=== PATIENT | female | born 1945 | race Caucasian/White ===

== ENCOUNTER 2017-03-27 00:31 | Emergency (ER) | payer MEDICARE, OTHER ==
--- NOTE | 2017-03-27 01:07 | EDM.PDOC ---
[id number] 4d WEAK Time Seen by Provider: 03/27/17 00:45 Source of Information: Reports: Patient History Limitations: Reports: No Limitations - History of Present Illness INITIAL COMMENTS - FREE TEXT/NARRATIVE: C/O not feeling well today. Last week one day with loose stools then better, Today, Intermittent headache, feels weak and tired and tonight ache in left shoulder radiating down arm. Headache similar to previous. Shoulder pain previous to pain when lying on shoulder but has not been doing this today No fever or chills. Lightheaded when standing . No chest pain or SOB. Minimal health car none in recent 5 years. Remote EKG with GB surgery and was told showed "something but can't recall what it was. Onset: Today Location: Reports: Upper Extremity, Left Left Upper Arm Pain Score (Numeric/FACES): 2 - Related Data Allergies Allergy/AdvReac Type Severity Reaction Status Date / Time No Known Allergies Allergy Verified 03/27/17 00:45 Home Meds: Home Meds . [No Known Home Meds] 03/27/17 [History] Past Medical History - Past Surgical History GI Surgical History: Reports: Cholecystectomy Social & Family History - Tobacco Use Smoking Status *Q: Never Smoker Second Hand Smoke Exposure: No - Caffeine Use Caffeine Use: Reports: Tea - Recreational Drug Use Recreational Drug Use: No ED ROS GENERAL - Review of Systems Review Of Systems: See Below Constitutional: Reports: Weakness. Denies: Fever, Chills, Diaphoresis, Decreased Appetite HEENT: Reports: No Symptoms Respiratory: Reports: No Symptoms Cardiovascular: Reports: Lightheadedness Endocrine: Reports: No Symptoms GI/Abdominal: Reports: No Symptoms Musculoskeletal: Reports: Shoulder Pain Skin: Reports: No Symptoms Neurological: Reports: No Symptoms Psychiatric: Reports: No Symptoms ED EXAM, GENERAL - Physical Exam Exam: See Below Exam Limited By: No Limitations General Appearance: Alert, Mild Distress Eye Exam: Bilateral Eye: EOMI, PERRL Ears: Normal External Exam, Normal TMs Nose: Normal Inspection Throat/Mouth: Normal Inspection, Normal Lips Head: Atraumatic, Normocephalic Neck: Normal Inspection, Full Range of Motion. No: Lymphadenopathy (L), Lymphadenopathy (R) Respiratory/Chest: No Respiratory Distress, Lungs Clear, Normal Breath Sounds Cardiovascular: Normal Peripheral Pulses, Regular Rate, Rhythm, No Edema, No JVD , No Murmur GI/Abdominal: Normal Bowel Sounds, Soft, Non-Tender Back Exam: Normal Inspection, Full Range of Motion Extremities: Normal Inspection, Normal Range of Motion, Non-Tender, No Pedal Edema Neurological: Alert, Oriented, Normal Gait, No Motor/Sensory Deficits Psychiatric: Normal Affect Skin Exam: Warm, Dry, Intact, Normal Color, No Rash EKG INTERPRETATION Rhythm: Other (Sinus Bradycardia) Rate (Beats/Min): 56 QRS: Other (LAFB) Course - Vital Signs Last Recorded V/S: Last Vital Signs Temp 98.6 F 03/27/17 04:10 Pulse 52 L 03/27/17 04:10 Resp 14 03/27/17 04:10 BP 139/61 03/27/17 04:10 Pulse Ox 98 03/27/17 04:10 Orthostatic Blood Pressure [ 113/62 Standing] Orthostatic Blood Pressure [ 151/69 Sitting] Orthostatic Blood Pressure [ 146/64 Supine] - Orders/Labs/Meds Orders: Active Orders 24 hr Category Date Time Status EKG 12 Lead [EKG Documentation Completion] [RC] URGENT Care 03/27/17 00:50 Active EKG Documentation Completion [RC] URGENT Care 03/27/17 05:00 Active Orthostatic Vital Signs [RC] ASDIRECTED Care 03/27/17 01:02 Active CULTURE URINE [RM] Stat Lab 03/27/17 01:00 Received Labs: Laboratory Tests 03/27/17 03/27/17 03/27/17 Range/Units 00:55 00:55 00:55 WBC 6.0 (5.0-10.0) 10^3/uL RBC 4.45 (4.2-5.4) 10^6/uL Hgb 13.3 (12.0-16.0) g/dL Hct 40.3 (37.0-47.0) % MCV 90.6 (80-100) fL MCH 29.9 (27.0-34.0) pg MCHC 33.0 (33.0-35.0) g/dL Plt Count 191 (150-450) 10^3/uL Neut % (Auto) 54.6 (42.2-75.2) % Lymph % (Auto) 31.0 (20.5-50.1) % [place] % (Auto) 10.8 H (2-8) % Eos % (Auto) 3.3 H (1.0-3.0) % Baso % (Auto) 0.3 (0.0-1.0) % Sodium 141 (135-145) mmol/L Potassium 4.4 (3.6-5.0) mmol/L Chloride 103 (101-111) mmol/L Carbon Dioxide 27.0 (21.0-31.0) mmol/L Anion Gap 15.4 BUN 18 (7-18) mg/dL Creatinine 0.7 (0.6-1.3) mg/dL Est Cr Clr Drug Dosing 63.65 mL/min Estimated GFR (MDRD) > 60 BUN/Creatinine Ratio 25.71 Glucose 101 (74-105) mg/dL Calcium 9.1 (8.4-10.2) mg/dl Total Bilirubin 0.6 (0.2-1.0) mg/dL AST 17 (10-42) IU/L ALT 13 (10-60) IU/L Alkaline Phosphatase 61 (42-121) IU/L CK-MB (CK-2) 2.00 (0.4-4.7) ng/mL Troponin I < 0.02 (0.00-0.02) ng/ml Total Protein 6.8 (6.7-8.2) g/dl Albumin 3.9 (3.2-5.5) g/dl Globulin 2.9 Albumin/Globulin Ratio 1.34 Amylase 101 H (28-100) U/L Lipase 45 (22-51) U/L Urine Color (YELLOW) Urine Appearance (CLEAR) Urine pH (5.0-9.0) Ur Specific [place] (1.005-1.030) Urine Protein (NEGATIVE) Urine Glucose (UA) (NEGATIVE) Urine Ketones (NEGATIVE) Urine Occult Blood (NEGATIVE) Urine Nitrite (NEGATIVE) Urine Bilirubin (NEGATIVE) Urine Urobilinogen (0.2-1.0) mg/dL Ur Leukocyte Esterase (NEGATIVE) Urine RBC /HPF Urine WBC (0-5/HPF) /HPF Ur Epithelial Cells /HPF Urine Bacteria (0-FEW/HPF) /HPF 03/27/17 03/27/17 Range/Units 01:00 05:08 WBC (5.0-10.0) 10^3/uL RBC (4.2-5.4) 10^6/uL Hgb (12.0-16.0) g/dL Hct (37.0-47.0) % MCV (80-100) fL MCH (27.0-34.0) pg MCHC (33.0-35.0) g/dL Plt Count (150-450) 10^3/uL Neut % (Auto) (42.2-75.2) % Lymph % (Auto) (20.5-50.1) % [place] % (Auto) (2-8) % Eos % (Auto) (1.0-3.0) % Baso % (Auto) (0.0-1.0) % Sodium (135-145) mmol/L Potassium (3.6-5.0) mmol/L Chloride (101-111) mmol/L Carbon Dioxide (21.0-31.0) mmol/L Anion Gap BUN (7-18) mg/dL Creatinine (0.6-1.3) mg/dL Est Cr Clr Drug Dosing mL/min Estimated GFR (MDRD) BUN/Creatinine Ratio Glucose (74-105) mg/dL Calcium (8.4-10.2) mg/dl Total Bilirubin (0.2-1.0) mg/dL AST (10-42) IU/L ALT (10-60) IU/L Alkaline Phosphatase (42-121) IU/L CK-MB (CK-2) (0.4-4.7) ng/mL Troponin I < 0.02 (0.00-0.02) ng/ml Total Protein (6.7-8.2) g/dl Albumin (3.2-5.5) g/dl Globulin Albumin/Globulin Ratio Amylase (28-100) U/L Lipase (22-51) U/L Urine Color Yellow (YELLOW) Urine Appearance Slightly cloudy (CLEAR) Urine pH 7.5 (5.0-9.0) Ur Specific [place] 1.015 (1.005-1.030) Urine Protein Negative (NEGATIVE) Urine Glucose (UA) Negative (NEGATIVE) Urine Ketones Negative (NEGATIVE) Urine Occult Blood Small H (NEGATIVE) Urine Nitrite Negative (NEGATIVE) Urine Bilirubin Negative (NEGATIVE) Urine Urobilinogen 0.2 (0.2-1.0) mg/dL Ur Leukocyte Esterase Moderate H (NEGATIVE) Urine RBC 5-10 H /HPF Urine WBC 10-20 H (0-5/HPF) /HPF Ur Epithelial Cells Moderate H /HPF Urine Bacteria Moderate H (0-FEW/HPF) /HPF Meds: Medications Discontinued Medications Generic Name Dose Route Start Last Admin Trade Name Jose PRN Reason Stop Dose Admin Aspirin 324 mg 03/27/17 01:26 03/27/17 01:31 Aspirin PO 03/27/17 01:27 324 mg ONETIME ONE Administration Nitrofurantoin Macrocrystals 100 mg 03/27/17 01:47 03/27/17 01:54 Macrobid PO 03/27/17 01:48 100 mg ONETIME ONE Administration Nitroglycerin 0.4 mg 03/27/17 01:27 03/27/17 01:31 Nitrostat SL 03/27/17 01:28 0.4 mg ONETIME ONE Administration Departure - Departure Time of Disposition: 05:53 Disposition: Home, Self-Care 01 Condition: Fair Clinical Impression: UTI, Urinary tract infectious disease, Left anterior shoulder pain - Discharge Information Instructions: Urinary Tract Infection, Adult Forms: ED Department Discharge Additional Instructions: Establish primary care follow up one week, sooner if chest pain, sweating or difficulty breathing or fever. Macrobid 100mg one twice daily for one week - My Orders Last 24 Hours: My Active Orders 03/27/17 00:50 EKG 12 Lead [EKG Documentation Completion] [RC] URGENT 03/27/17 01:00 CULTURE URINE [RM] Stat 03/27/17 01:02 Orthostatic Vital Signs [RC] ASDIRECTED 03/27/17 05:00 EKG Documentation Completion [RC] URGENT - Assessment/Plan Last 24 Hours: My Active Orders 03/27/17 00:50 EKG 12 Lead [EKG Documentation Completion] [RC] URGENT 03/27/17 01:00 CULTURE URINE [RM] Stat 03/27/17 01:02 Orthostatic Vital Signs [RC] ASDIRECTED 03/27/17 05:00 EKG Documentation Completion [RC] URGENT
[2017-03-27 01:21] LABS: CHLORIDE,CL 103 mmol/L (101-111); SODIUM,NA 141 mmol/L (135-145)
[2017-03-27] MEDS ORDERED: Aspirin 81 MG Tab.Chew PO ONE (01:26)
[2017-03-27] MEDS ORDERED: Nitroglycerin 0.4 MG Tab.SL SL ONE (01:27)
[2017-03-27] MEDS ORDERED: Nitrofurantoin Monohydrate/Macrocrystalline 100 MG Cap PO ONE (01:47)
[2017-03-27 06:24] VITALS: BP 140/67
--- NOTE | 2017-03-27 18:29 | EKG ---
03/27/2017 - KRISS MIGUEL - EKG from 52 minutes after midnight 03/27/2017. EKG, per my reading, shows right bundle-branch block with no acute ST changes. [facility] /[id number]
--- NOTE | 2017-03-27 18:38 | EKG ---
03/27/2017 - KRISS MIGUEL - TIME: 0449 hours. EKG per my reading, shows right bundle-branch block. [facility] /[id number]
== END 2017-03-27 06:25 | disposition home or self-care (01) ==
LOC: DL.ED 00:31
DX: M25.512 Pain in left shoulder (principal); N39.0 Urinary tract infection, site not specified; Z90.49 Acquired absence of other specified parts of digestive tract
CPT/HCPCS: 36415; 80053; 81001; 82150; 82553; 83690; 84484; 85025; 87086; 93005; 93010; 99285; A9270; 99283

== ENCOUNTER 2021-05-28 02:46 | Emergency (ER) | payer MEDICARE, OTHER ==
[2021-05-28] MEDS ORDERED: Sodium Chloride 0.9% 10 ML Syringe FLUSH PRN (03:10)
[2021-05-28] MEDS ORDERED: Baclofen 10 MG Tab PO ONE (03:11)
--- NOTE | 2021-05-28 03:19 | EDM.PDOC ---
ED HPI GENERAL MEDICAL PROBLEM - General Chief Complaint: Back Pain or Injury Stated Complaint: STABBING PAIN LEFT SIDE OF BACK Time Seen by Provider: 05/28/21 03:07 Source of Information: Reports: Patient History Limitations: Reports: No Limitations - History of Present Illness INITIAL COMMENTS - FREE TEXT/NARRATIVE: Pt is here for back pain that started about 30 minutes prior to arrival that woke her up from sleep. She denies any recent illnesses. No shortness of breath or cough. It hurts with deep breaths and movements. Rest makes it better. No fevers or chills. No known sick contacts or exposure to COVID. She has never had this before. She is not sure if she slept wrong. No nausea or vomiting. Otherwise feeling well. The pain does not radiate. She noted that rest it will get down to a 3-4/10, but will get up to a 10/10 with movement or breathing. It is sharp in nature. No chest pain or tightness. No urinary urgency, dysuria or frequency. - Related Data Allergies Allergy/AdvReac Type Severity Reaction Status Date / Time No Known Allergies Allergy Verified 03/27/17 00:45 Home Meds: Home Meds . [No Known Home Meds] 03/27/17 [History] Past Medical History - Past Surgical History GI Surgical History: Reports: Cholecystectomy Social & Family History - Caffeine Use Caffeine Use: Reports: Tea ED ROS GENERAL - Review of Systems Review Of Systems: Comprehensive ROS is negative, except as noted in HPI. ED EXAM, UPPER BACK/NECK PAIN - Physical Exam Exam: See Below Exam Limited By: No Limitations General Appearance: Alert, WD/WN, Mild Distress (from acute pain) Eye Exam: Bilateral Eye: Normal Inspection Ears Exam: Normal External Exam Throat/Mouth Exam: Normal Voice, No Airway Compromise Head Exam: Atraumatic, Normocephalic Neck Exam: Non-Tender, Full Range of Motion, Normal Inspection Cardiovascular/Respiratory: Regular Rate, Rhythm, No M/R/G, Normal Breath Sounds, No Respiratory Distress GI/Abdominal: Soft, Non-Tender, No Distention (Female) Exam: Deferred Rectal (Female) Exam: Deferred Back Exam: Normal Inspection, Muscle Spasm (left mid thoracic/parascapular), Paraspinal Tenderness (over muscle spasm) Extremities: Normal Inspection, No Pedal Edema, Normal Capillary Refill Neurologic: No Motor/Sensory Deficits, Alert, Normal Mood/Affect, Oriented x 3 Psychiatric: Normal Affect, Normal Mood Skin Exam: Normal Color, Warm/Dry Lymphatic: No Adenopathy #1 Interpretation EKG Date: 05/28/21 Time: 03:02 Rhythm: NSR [place]: LAD-Left [place] Deviation P-Wave: Present QRS: Normal ST-T: Normal QT: Normal Course - Vital Signs Last Recorded V/S: Last Vital Signs Temp 98.2 F 05/28/21 03:26 Pulse 60 05/28/21 03:26 Resp 20 05/28/21 03:26 BP 160/89 H 05/28/21 03:26 Pulse Ox 96 05/28/21 03:26 - Orders/Labs/Meds Orders: Active Orders 24 hr Category Date Time Status Peripheral IV Care [RC] . DIRECTED Care 05/28/21 03:11 Ordered Sodium Chloride 0.9% [Saline Flush] Med 05/28/21 03:10 Active 10 ml FLUSH ASDIRECTED PRN Peripheral IV Insertion Adult [OM.PC] Stat Oth 05/28/21 03:10 Ordered Medication Orders Sodium Chloride (Sodium Chloride 0.9% 10 Ml Syringe) 10 ml FLUSH ASDIRECTED PRN PRN Reason: Keep Vein Open Labs: Laboratory Tests 05/28/21 05/28/21 05/28/21 Range/Units 03:03 03:03 03:37 WBC 6.6 (5.0-10.0) 10^3/uL RBC 4.25 (4.2-5.4) 10^6/uL Hgb 12.5 (12.0-16.0) g/dL Hct 37.9 (37.0-47.0) % MCV 89.2 (80-100) fL MCH 29.4 (27.0-34.0) pg MCHC 33.0 (33.0-35.0) g/dL Plt Count 193 (150-450) 10^3/uL Neut % (Auto) 50.3 (42.2-75.2) % Lymph % (Auto) 35.7 (20.5-50.1) % [place] % (Auto) 8.9 H (2-8) % Eos % (Auto) 4.5 H (1.0-3.0) % Baso % (Auto) 0.6 (0.0-1.0) % Sodium 143 (136-145) mmol/L Potassium 4.0 (3.5-5.1) mmol/L Chloride 106 (98-107) mmol/L Carbon Dioxide 26 (21-32) mmol/L Anion Gap 15.0 H (7-13) mEq/L BUN 15 (7-18) mg/dL Creatinine 0.78 (0.55-1.02) mg/dL Est Cr Clr Drug Dosing 56.08 mL/min Estimated GFR (MDRD) > 60 BUN/Creatinine Ratio 19.2 (No establ ref range) Glucose 88 (70-99) mg/dL Lactic Acid 0.8 (0.4-2.0) mmol/L Calcium 8.7 (8.5-10.1) mg/dL Total Bilirubin 0.5 (0.2-1.0) mg/dL AST 13 L (15-37) U/L ALT 20 (14-59) U/L Alkaline Phosphatase 70 (46-116) U/L Troponin I High Sens 8 (<=51) pg/mL Total Protein 6.7 (6.4-8.2) g/dL Albumin 3.4 (3.4-5.0) g/dL Globulin 3.3 Albumin/Globulin Ratio 1.0 Urine Color (YELLOW) Urine Appearance (CLEAR) Urine pH (5.0-9.0) Ur Specific [place] (1.005-1.030) Urine Protein (NEGATIVE) Urine Glucose (UA) (NEGATIVE) Urine Ketones (NEGATIVE) Urine Occult Blood (NEGATIVE) Urine Nitrite (NEGATIVE) Urine Bilirubin (NEGATIVE) Urine Urobilinogen (0.2-1.0) mg/dL Ur Leukocyte Esterase (NEGATIVE) Urine RBC (0-5) /HPF Urine WBC (0-5/HPF) /HPF Ur Epithelial Cells (NOT SEEN) /HPF Amorphous Sediment (NOT SEEN) /HPF Urine Bacteria (0-FEW/HPF) /HPF Urine Mucus (NOT SEEN) /LPF 05/28/21 Range/Units 04:41 WBC (5.0-10.0) 10^3/uL RBC (4.2-5.4) 10^6/uL Hgb (12.0-16.0) g/dL Hct (37.0-47.0) % MCV (80-100) fL MCH (27.0-34.0) pg MCHC (33.0-35.0) g/dL Plt Count (150-450) 10^3/uL Neut % (Auto) (42.2-75.2) % Lymph % (Auto) (20.5-50.1) % [place] % (Auto) (2-8) % Eos % (Auto) (1.0-3.0) % Baso % (Auto) (0.0-1.0) % Sodium (136-145) mmol/L Potassium (3.5-5.1) mmol/L Chloride (98-107) mmol/L Carbon Dioxide (21-32) mmol/L Anion Gap (7-13) mEq/L BUN (7-18) mg/dL Creatinine (0.55-1.02) mg/dL Est Cr Clr Drug Dosing mL/min Estimated GFR (MDRD) BUN/Creatinine Ratio (No establ ref range) Glucose (70-99) mg/dL Lactic Acid (0.4-2.0) mmol/L Calcium (8.5-10.1) mg/dL Total Bilirubin (0.2-1.0) mg/dL AST (15-37) U/L ALT (14-59) U/L Alkaline Phosphatase (46-116) U/L Troponin I High Sens (<=51) pg/mL Total Protein (6.4-8.2) g/dL Albumin (3.4-5.0) g/dL Globulin Albumin/Globulin Ratio Urine Color Yellow (YELLOW) Urine Appearance Clear (CLEAR) Urine pH 7.0 (5.0-9.0) Ur Specific [place] 1.015 (1.005-1.030) Urine Protein Negative (NEGATIVE) Urine Glucose (UA) Negative (NEGATIVE) Urine Ketones Negative (NEGATIVE) Urine Occult Blood Small H (NEGATIVE) Urine Nitrite Negative (NEGATIVE) Urine Bilirubin Negative (NEGATIVE) Urine Urobilinogen 0.2 (0.2-1.0) mg/dL Ur Leukocyte Esterase Negative (NEGATIVE) Urine RBC 10-20 H (0-5) /HPF Urine WBC 0-5 (0-5/HPF) /HPF Ur Epithelial Cells Occasional (NOT SEEN) /HPF Amorphous Sediment Few (NOT SEEN) /HPF Urine Bacteria Occasional (0-FEW/HPF) /HPF Urine Mucus Rare (NOT SEEN) /LPF Meds: Medications Generic Name Dose Route Start Last Admin Trade Name Freq PRN Reason Stop Dose Admin Sodium Chloride 10 ml 05/28/21 03:10 Sodium Chloride 0.9% 10 Ml Syringe FLUSH ASDIRECTED PRN Keep Vein Open Discontinued Medications Generic Name Dose Route Start Last Admin Trade Name Freq PRN Reason Stop Dose Admin Baclofen 10 mg 05/28/21 03:11 05/28/21 03:23 Baclofen 10 Mg Tab PO 05/28/21 03:12 10 mg ONETIME ONE Administration - Re-Assessments/Exams Free Text/Narrative Re-Assessment/Exam: Discussed with pt that her pain was most likely from her muscle spasm, but we will rule out more life threatening cause of similar pain including heart attack, renal infection, etc. Pt verbalized understanding. Offered Baclofen while awaiting results, pt is in agreement with treatment plan. 05/28/21 03:38 Reviewed labs with pt. Pt reports she is feeling much better with the baclofen and is ready for discharge. 05/28/21 05:50 Departure - Departure Time of Disposition: 05:50 Disposition: Home, Self-Care 01 Condition: Fair Clinical Impression: Muscle spasm of back - Discharge Information *PRESCRIPTION DRUG MONITORING PROGRAM REVIEWED*: Not Applicable *COPY OF PRESCRIPTION DRUG MONITORING REPORT IN PATIENT DIANE: Not Applicable Instructions: Muscle Cramps and Spasms, [id number] Forms: ED Department Discharge Additional Instructions: Baclofen three times daily as needed for muscle spasm If symptoms worsen, call/return to the ER Follow up with you primary care provider in 3-5 days, or sooner if needed Sepsis Event Note (ED) - Focused Exam Vital Signs: Vital Signs Temp Pulse Resp BP Pulse Ox 05/28/21 03:26 98.2 F 60 20 160/89 H 96 - My Orders Last 24 Hours: My Active Orders 05/28/21 03:10 Sodium Chloride 0.9% [Saline Flush] 10 ml FLUSH ASDIRECTED PRN Peripheral IV Insertion Adult [OM.PC] Stat 05/28/21 03:11 Peripheral IV Care [RC] . DIRECTED - Assessment/Plan Last 24 Hours: My Active Orders 05/28/21 03:10 Sodium Chloride 0.9% [Saline Flush] 10 ml FLUSH ASDIRECTED PRN Peripheral IV Insertion Adult [OM.PC] Stat 05/28/21 03:11 Peripheral IV Care [RC] . DIRECTED
[2021-05-28 03:29] VITALS: BP 160/89; PULSE 60
[2021-05-28 03:35] LABS: CHLORIDE,CL 106 mmol/L (98-107); SODIUM,NA 143 mmol/L (136-145)
== END 2021-05-28 06:02 | disposition home or self-care (01) ==
LOC: DL.ED 02:46
DX: M62.830 Muscle spasm of back (principal)
CPT/HCPCS: 36415; 80053; 81001; 83605; 84484; 85025; 93005; 99283; A9270

== ENCOUNTER 2023-02-20 07:38 | Emergency (ER) | payer MEDICARE, OTHER ==
[2023-02-20] MEDS ORDERED: Acetaminophen 325 MG Tab PO ONE (07:52)
[2023-02-20 08:51] VITALS: BP 160/80; PULSE 57
== END 2023-02-20 08:47 | disposition home or self-care (01) ==
LOC: DL.ED 07:38
DX: S20.222A Contusion of left back wall of thorax, initial encounter (principal); M62.830 Muscle spasm of back; W01.0XXA Fall on same level from slipping, tripping and stumbling without subsequent striking against object, initial encounter
CPT/HCPCS: 71100-LT; 99283; A9270-GY

== ENCOUNTER 2023-11-13 09:10 | Day surgery (SDC) | payer MEDICARE, OTHER ==
[2023-11-13] MEDS: Proparacaine 0.5% Ophth Soln 15 ML Bottle EYELF ONE ×2 (09:21→10:05)
[2023-11-13] MEDS: Moxifloxacin 0.5% Ophth Soln 3 ML Bottle EYELF ONE (09:22)
[2023-11-13] MEDS: Povidone-Iodine 5% Sterile Ophth Soln 30 ML Bottle EYELF ONE ×2 (09:23→10:06)
[2023-11-13] MEDS: Tropicamide 1% Ophth Soln 15 ML Bottle EYELF ONE (09:24)
[2023-11-13] MEDS: Phenylephrine 10% Ophth Soln 5 ML Bot EYELF ONE (09:24)
[2023-11-13] MEDS: Cataract Ophth Solution EYELF ONE (09:25)
[2023-11-13] MEDS: Timolol Maleate 0.5% Ophth Soln 5 ML Bottle EYELF ONE (09:25)
[2023-11-13] MEDS ORDERED: Acetaminophen/Codeine 300-30 MG Tab PO PRN (09:45)
[2023-11-13] MEDS ORDERED: Acetaminophen 325 MG Tab PO PRN (09:45)
[2023-11-13] MEDS ORDERED: Sodium Chloride 0.9% 10 ML Syringe FLUSH PRN (09:45)
[2023-11-13] MEDS ORDERED: Ondansetron 4 MG/2 ML SDV IVPUSH PRN (09:45)
[2023-11-13] MEDS: Dexamethasone/Neomycin/Polymyxin B Ophth Oint 3.5 GM Tube EYELF ONE (10:06)
[2023-11-13] MEDS: Lidocaine 1% 30 ML SDV INJECT ONE (10:06)
[2023-11-13] MEDS: Diclofenac Sodium 0.1% Ophth Soln 5 ML Bottle EYELF ONE (10:06)
[2023-11-13] MEDS: Apraclonidine 0.5% Ophth Soln 5 ML Bot EYELF ONE (10:06)
[2023-11-13] MEDS: Vancomycin 500 MG SDV EYELF ONE (10:07)
[2023-11-13 10:47] VITALS: BP 105/69; PULSE 89
== END 2023-11-13 10:54 | disposition home or self-care (01) ==
LOC: DL.SDS 09:10
PROVIDERS: ATTEND Ophthalmology
DX: H25.812 Combined forms of age-related cataract, left eye (principal); Z87.891 Personal history of nicotine dependence; Z91.040 Latex allergy status; Z88.0 Allergy status to penicillin
CPT/HCPCS: A9270-GY; J3370; J3490; V2632

== ENCOUNTER 2023-11-27 06:21 | Day surgery (SDC) | payer MEDICARE, OTHER ==
[2023-11-27] MEDS ORDERED: Ondansetron 4 MG/2 ML SDV IVPUSH PRN (06:30)
[2023-11-27] MEDS ORDERED: Acetaminophen/Codeine 300-30 MG Tab PO PRN (06:30)
[2023-11-27] MEDS ORDERED: Acetaminophen 325 MG Tab PO PRN (06:30)
[2023-11-27] MEDS ORDERED: Proparacaine 0.5% Ophth Soln 15 ML Bottle ONE (06:32)
[2023-11-27] MEDS: Sodium Chloride 0.9% 10 ML Syringe FLUSH PRN (06:50)
[2023-11-27] MEDS: Proparacaine 0.5% Ophth Soln 15 ML Bottle EYERT ONE ×2 (06:52→07:55)
[2023-11-27] MEDS: Moxifloxacin 0.5% Ophth Soln 3 ML Bottle EYERT ONE (06:53)
[2023-11-27] MEDS: Povidone-Iodine 5% Sterile Ophth Soln 30 ML Bottle EYERT ONE ×2 (06:53→07:56)
[2023-11-27] MEDS: Tropicamide 1% Ophth Soln 15 ML Bottle EYERT ONE (06:54)
[2023-11-27] MEDS: Phenylephrine 10% Ophth Soln 5 ML Bot EYERT ONE (06:55)
[2023-11-27] MEDS: Timolol Maleate 0.5% Ophth Soln 5 ML Bottle EYERT ONE (06:55)
[2023-11-27] MEDS: Cataract Ophth Solution EYERT ONE (06:56)
[2023-11-27] MEDS: Apraclonidine 0.5% Ophth Soln 5 ML Bot EYERT ONE (07:56)
[2023-11-27] MEDS: Lidocaine 1% 30 ML SDV INJECT ONE (07:57)
[2023-11-27] MEDS: Dexamethasone/Neomycin/Polymyxin B Ophth Oint 3.5 GM Tube EYERT ONE (07:57)
[2023-11-27] MEDS: Diclofenac Sodium 0.1% Ophth Soln 5 ML Bottle EYERT ONE (07:57)
[2023-11-27] MEDS: Vancomycin 500 MG SDV EYERT ONE (07:57)
[2023-11-27 08:42] VITALS: BP 142/60; PULSE 54
== END 2023-11-27 08:20 | disposition home or self-care (01) ==
LOC: DL.SDS 06:21
PROVIDERS: ATTEND Ophthalmology
DX: H25.811 Combined forms of age-related cataract, right eye (principal); Z87.891 Personal history of nicotine dependence; Z91.040 Latex allergy status; Z88.1 Allergy status to other antibiotic agents; Z90.49 Acquired absence of other specified parts of digestive tract
CPT/HCPCS: 66984; A9270; J3370; V2632; J3490